=== PATIENT | male | born 1965 | race Hispanic/Latino ===

== ENCOUNTER 2022-12-17 17:47 | Emergency (ER) | payer SELFPAY ==
[2022-12-17] MEDS ORDERED: Fluorescein Opthalmic Strip ONE (18:21)
[2022-12-17] MEDS ORDERED: Proparacaine 0.5% Opth 15 ML BOT ONE (18:21)
== END 2022-12-17 19:22 | disposition home or self-care (01) ==
LOC: ERS 17:47
DX: H57.11 Ocular pain, right eye (principal); I10 Essential (primary) hypertension
CPT/HCPCS: 99283

== ENCOUNTER 2023-06-16 11:04 | Outpatient (CLI) | payer MEDICARE | END 2023-06-16 11:05 | disposition home or self-care (01) | LOC: BICRAD 11:04 | PROVIDERS: ATTEND Nurse Practitioner Family | DX: S69.91XA Unspecified injury of right wrist, hand and finger(s), initial encounter (principal); S62.616A Displaced fracture of proximal phalanx of right little finger, initial encounter for closed fracture; M18.11 Unilateral primary osteoarthritis of first carpometacarpal joint, right hand ==

== ENCOUNTER 2024-03-07 14:45 | Outpatient (CLI) | payer MEDICARE, BC | END 2024-03-07 14:46 | disposition home or self-care (01) | LOC: SCSMRI 14:45 | PROVIDERS: ATTEND Student in an Organized Health Care Education/Training Program | DX: M43.16 Spondylolisthesis, lumbar region (principal); M51.369 Other intervertebral disc degeneration, lumbar region without mention of lumbar back pain or lower extremity pain; M48.061 Spinal stenosis, lumbar region without neurogenic claudication; M47.816 Spondylosis without myelopathy or radiculopathy, lumbar region; M47.817 Spondylosis without myelopathy or radiculopathy, lumbosacral region; M51.379 Other intervertebral disc degeneration, lumbosacral region without mention of lumbar back pain or lower extremity pain; M48.07 Spinal stenosis, lumbosacral region | CPT/HCPCS: 72148 ==